=== PATIENT | female | born 1980 | race Caucasian/White ===

== ENCOUNTER 2020-08-18 22:10 | Emergency (ER) | payer OTHER, SELFPAY ==
[2020-08-18 22:12] VITALS: BP 117/73; PULSE 63; RESP 16; TEMP 35.9; O2SAT 98; BMI 29.2
--- NOTE | 2020-08-18 22:43 | ED.DCSUM_ITS ---
History of Present Illness Chief Complaint: Foreign Body Informant: Patient Narrative: Presents with possible burning stuck in her throat. She stated she was eating some soup and felt that she may have swallowed a bone. She has pain in the right side of her neck. She is able to drink fluids but it hurts. She is not regurgitating. She is unsure if it just scratched her throat or if it stuck there. She has a foreign body sensation however. She is never had this before. No chronic esophagus problems. No previous endoscopy. She takes no medications or has no chronic medical problems. Current severity is mild to moderate. No home treatment. Past Medical History - Allergies and Home Meds Allergies/Adverse Reactions: Allergies morphine Allergy (Verified 08/18/20 22:14) Swelling Primary Care Physician: Diony Mobley MD [Primary Care Provider] - Prior records reviewed: Yes Past Medical History: None Surgical History: - - Lives: With Family Smoking Status: Never smoker Alcohol: None Drugs: None Review of Systems General: Denies: Chills, Fever, Sweats Eyes: Denies: Visual changes - bilaterally, Diplopia ENT: Reports: Sore throat. Denies: Rhinorrhea Cardiovascular: Denies: Chest pain, Palpitations Respiratory: Denies: Dyspnea, Cough, Dyspnea on exertion Gastrointestinal: Denies: Abdominal pain, Nausea, Vomiting, Diarrhea, Melena, Hematochezia Genitourinary: Denies: Dysuria, Hematuria, Frequency Musculoskeletal: Denies: Back pain, Extremity Pain Skin: Denies: Rash, Wounds Neurological: Denies: Headache, Weakness, Numbness Physical Exam Vital Signs/Narrative: Vital Signs Temp Pulse Resp BP Pulse Ox 08/18/20 22:12 96.6 F L 63 16 117/73 98 General: Well nourished, Well developed, No Acute Distress Head: Normocephalic, Atraumatic Eyes: Perrl, EOMI ENT: Moist mucous membranes, No rhinorrhea Neck: Supple, Nontender Cardiovascular: Regular rate, Regular rhythm, No murmurs Respiratory: No distress, CTA bilaterally, Chest nontender Abdomen: Soft, Nontender, Nondistended, Normal bowel sounds Back: Nontender, Normal Inspection Extremities: Nontender, No edema Skin: Normal color, No rash Neurological: Alert, Oriented x3, Cranial nerves II-XII grossly intact, Normal Strength, Normal Sensation Psychological: Normal affect, Normal Mood Diagnostic/Tx/Re-eval - Medical Decision Making Patient able to swallow water but with pain. Given a GI cocktail. X-ray of the soft tissue neck obtained. X-ray negative for foreign body. Patient felt somewhat better after GI cocktail. She may just have an abrasion from a bone that went down. I do not think she needs a CT soft tissue neck. She is nontoxic. She will do a liquid diet and liquid Tylenol or ibuprofen over-the- counter and follow-up with general surgery if needed. She may need outpatient endoscopy. ED Disposition - Plan for ED Patient: Disposition: Home or Assisted Living Diagnosis: Foreign body sensation in throat Instructions: ED Swallowed Foreign Body (Adult) Referrals: Dequan Ruiz MD [STAFF PHYSICIAN] -
[2020-08-18] MEDS: Mag Hydrox/Al Hydrox/Simeth 30 ML UDC PO (22:52)
--- NOTE | 2020-08-18 22:58 | RAD_ITS ---
STUDY: X-RAY - SOFT TISSUE NECK REASON FOR EXAM: Female, 39 years old. Possible foreign body. Patient thinks chicken bone is stuck in throat. TECHNIQUE: 2 view(s) of the neck were obtained. COMPARISON: None. FINDINGS: Normal visualized nasopharynx, oropharynx, hypopharynx. Normal epiglottis. Normal visualized subglottic tracheal air column. Normal prevertebral soft tissue structures. Normal visualized osseous structures. The soft tissue structures are unremarkable. There is no visualized radiopaque foreign body. RAD/Neck for Soft Tissue IMPRESSION: Normal x-ray soft tissue neck. Electronically Signed: Sharad Gurrola DO at 23:13 EST Tel [phone], Service support ,
[2020-08-19 00:10] VITALS: RESP 16; O2SAT 100
== END 2020-08-19 00:11 | disposition home or self-care (01) ==
PROVIDERS: Emergency Provider Emergency Medicine; PCP Family Medicine
DX: T17.208A Unspecified foreign body in pharynx causing other injury, initial encounter (principal); X58.XXXA Exposure to other specified factors, initial encounter
CPT/HCPCS: 70360; 99282

== ENCOUNTER 2023-02-15 07:39 | Emergency (ER) | payer OTHER, SELFPAY ==
[2023-02-15 07:39] VITALS: BP 148/88; PULSE 65; RESP 18; TEMP 36.2; O2SAT 100; BMI 29.2
[2023-02-15 07:41] VITALS: BP 148/88; PULSE 65; RESP 18; TEMP 36.2; O2SAT 99; BMI 29.2
--- NOTE | 2023-02-15 08:03 | ED.RN ---
[facility].
[2023-02-15] MEDS: fentaNYL 100 MCG/2 ML Ampul 50 MCG IV (08:16)
[2023-02-15] MEDS: 0.9% Normal Saline 1,000 ML 100 ML IV (08:19)
--- NOTE | 2023-02-15 08:23 | EX.ED.UPPERE ---
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 Nail gun use today accidentally through left hand prior to arrival. Coated nail patient is Greek-speaking. Reports had had childhood vaccinations. Unclear on the last tetanus. No past med history. Allergy morphine causing swelling in her arm in the past. There is no anaphylaxis. No anticoagulation medications. No history of similar. Tetanus Immunization: Unknown Prior similar symptoms: No PFSH PFSH Medical History Ovarian cyst Home Medications cephalexin 500 mg capsule 500 mg PO Q6 #40 CAPSULES 02/15/23 [Rx Last Taken Unknown] Allergy/AdvReac Type Severity Reaction Status Date / Time morphine Allergy Swelling Verified 08/18/20 22:14 Family History no significant family his Surgical History H/O shoulder surgery Previous section Social History household members: family Smoking Status: Never smoker ROS ROS ED Constitutional Constitutional ED: Denies chills, fever(s) or sweats Eyes Eyes: Denies change in vision ENT ENT ED: Denies dysphagia or sore throat Cardiovascular Cardiovascular: Denies chest pain, leg edema, palpitations or racing heartbeat Respiratory/Chest Respiratory/Chest: Denies cough, dyspnea or dyspnea on exertion Gastrointestinal Gastrointestinal: Denies abdominal pain, diarrhea, nausea or vomiting Genitourinary Genitourinary ED: Denies dysuria, hematuria or urinary frequency Musculoskeletal Musculoskeletal: Denies back pain, extremity pain or neck pain Integumentary Reports wounds and other Details: Penetrating nail injury to the left hand ; Denies rash Neurologic Neurologic: Denies headache(s), paresthesias or weakness EXAM Physical Exam Const Vital Signs: 02/15/23 07:39 02/15/23 07:41 Temperature 97.2 F L 97.2 F L Temperature Source Temporal Temporal Pulse Rate 65 65 Respiratory Rate 18 18 Blood Pressure 148/88 H 148/88 H Blood Pressure Mean 108 108 Pulse Ox 100 99 Oxygen Delivery Method Room Air Room Air Positive well nourished and well developed General Appearance ED: well developed and NAD HEENT Reports moist mucous membranes normocephalic and atraumatic Eyes PERRL, EOMs intact bilaterally and conjunctivae normal General Eye ED: Yes normal appearance of both eyes Neck no lymphadenopathy and supple General: Negative for tenderness Chest Wall Chest: Negative for tenderness Resp normal respiratory effort and normal air movement Effort and Inspection: symmetric chest movement; Negative for respiratory distress Cardio regular rate, regular rhythm and no murmurs Peripheral Pulses: pulses 2+ throughout GI normal to inspection, nondistended, normoactive bowel sounds and non-tender Palpation: Negative for guarding or rebound tenderness present Back/Spine no CVA tenderness and no thoracic nor lumbar tenderness Extremity Extremity Narrative: Left upper extremity: Hand: Penetrating nail distal portion hand between the third and fourth metacarpals with point sticking out the dorsal aspect there is some surrounding erythema. Patient able to move her fingers distally. Rings to the ring finger were removed. There is no swelling distally currently. Cap refills intact distally. General Extremety ED: Negative for edema or tenderness General Extremity: Negative for edema Neuro oriented x3 and no sensory deficits noted Sensorium / Orientation: awake and alert Skin no rashes or lesions noted and no wounds MDM MDM MDM Narrative Medical decision making narrative: Interventions / MDM: Differential diagnosis: Penetrating injury left hand, tendon injury, bone fractures, cellulitis Diagnosis considered but do not suspect: N/A My EKG interpretation: N/A Imaging independently reviewed and interpreted by myself: Left hand 3 views: Metallic nail through the hand between the third and fourth metacarpals. No bony involvement. There is anchors noted on the side. External documents reviewed: N/A Test considered but not ordered:N/A ED course: Patient penetrating injury there is slight erythema dorsal aspect of the hand currently with a coated nail. IV established labs Ancef given, tetanus updated. X-ray ordered. Fentanyl and fluids started. Procedure note: Verbal consent. After reviewing x-ray with anchors, discussed cutting the head and going through and through with the direction of the nail entrance. They understand this. Betadine prep of the skin dorsal and volar are prior to starting. Patient had 1% lidocaine injection a total of 8 cc dorsal and volar aspect for analgesia control. 11 blade used for skin slit incision dorsal aspect proximal and distal in a vertical position. Betadine prep of the instruments used. Head of nail was cut with pliers on the palmar aspect. Additional prior used to pull the nail from the dorsal aspect out with no complications. Mixed saline and Betadine solution used to flush the wound on both sides. Flexion against resistance of all digits were intact distally without any weakness. Patient tolerated procedure well. 0910: No bony involvement nail was removed as noted above. There is slight erythema she is at risk for infection with concerning coating to the nail. There is no hand specialist available locally. [facility] telehealth hand will be consulted for evaluation for likely close outpatient follow-up. Image studies were sent to the facility. 0950: I spoke with [facility] hand Dr. Brown discussed findings concerns. He will follow-up in 1 week at the office. He is aware that orthopedist Dr. Wang does see him also in the past. He is not on-call discussed. I will give information for the office they would not see her for hand injury that they will call and be seen in [place]. This was discussed with her superiors from her job. She is currently having vacation time, therefore will be not work that remains restrictions currently. Re-evaluation: stable Disposition discussed with patient/family/significant other: Patient and family Case discussed with consulting clinician: Hand specialist [facility], Dr. Brown This note was generated with Wis[employer] dictation software. It may contain incorrect words, spelling, and punctuation that were not noted in checking the note before signing. Discharge Plan Triage Chief Complaint: Upper Extremity Injury Other Complaint: Wound ED Provider: Jagdeep Luis Dx/Rx/DC Orders Clinical Impression: Penetrating injury, Cellulitis of hand, left, Puncture wound of left hand Instructions: Cellulitis Dc, ED Puncture Wound (General) Prescriptions: New cephalexin [cephalexin] 500 mg capsule 500 mg PO Q6 Qty: 40 0RF Primary Care Provider: Diony Mobley Referrals: Diony Mobley MD [Primary Care Provider] - Andrew Wang DO [Med Staff - Active Staff] - 1 Week Activity Restrictions/Additional Instructions: Nail was removed from hand. Status post Ancef and tetanus. Take antibiotic as prescribed. Ibuprofen up to 600 mg every 6 hours. You may try calling Dr. Wang's office if they are willing to see a hand injury in [address] Brown office at [phone] to be seen down in [place] [facility] for evaluation. Discussed signs of infection to return to the ED. Disposition Disposition: Home, Self Care
--- NOTE | 2023-02-15 08:30 | RAD_ITS ---
STUDY: X-RAY - LEFT HAND REASON FOR EXAM: Female, 42 years old. Foreign body due to injury. TECHNIQUE: 3 view(s) of the hand. COMPARISON: None. FINDINGS: Normal radiocarpal articulation. Normal distal radioulnar joint. Normal visualized carpal bones. Normal carpal articulations Normal carpometacarpal articulation of the thumb. Normal second through fifth carpometacarpal joints. Normal metacarpi. Normal metacarpophalangeal joint of the thumb. Normal interphalangeal joint of the thumb. Normal proximal and distal phalanges of the thumb. Normal metacarpophalangeal joints of the second through fifth fingers. Normal proximal and distal interphalangeal joints of the second through fifth fingers. Normal phalanges of the second through fifth fingers. There is a 3.7 cm metallic nail in the soft tissues overlying the dorsal aspect of the hand between the third and fourth metacarpals. RAD/Hand Min 3 Views IMPRESSION: Metallic nail in the soft tissues overlying the dorsal aspect of the hand between the third and fourth metacarpals. Electronically Signed: Buddy Johns MD at 8:51 EDT ,
[2023-02-15 08:33] LABS: Absolute Lymphocyte Count 2.12 X10^3/uL (0.83-4.51); Absolute Neutrophil Count 3.7 X10^3/uL (2.0-7.7); Basophil# 0.05 X10^3/uL; Basophil% 0.8 % (0-1); Eosinophil# 0.05 X10^3/uL; Eosinophils% 0.8 % (0-5); Hematocrit 37.4 % (37-47); Hemoglobin 12.5 g/dL (12.0-15.0); Lymphocyte # 2.12 X10^3/ul (0.83-4.51); Lymphocyte % 33.7 % (19-41); Mean Corp Hgb Conc 33.4 g/dL (32-36); Mean Corpuscular Hgb 29.3 pg (27.0-32.0); Mean Corpuscular Volume 87.8 fL (81-99); Monocyte# 0.33 X10^3/uL; Monocyte% 5.2 % (0-10); NRBC Flagged by Analyzer 0 % (0-5); Neutrophil # 3.73 X10^3/uL (2.7-7.7); Neutrophil % 59.3 % (47-70); Platelet Count 210 K/mm3 (150-450); RBC Distribution Width SD 41.4 fl (35.1-43.9); Red Blood Count 4.26 M/mm3 (4.2-5.4); White Blood Count 6.3 K/mm3 (4.4-11.0)
[2023-02-15 08:46] LABS: Anion Gap 6 (5-15); BUN 19 mg/dL (7-18); Calcium,Total 9.1 mg/dL (8.5-10.1); Chloride 107 mmol/L (98-107); Creatinine, Serum 0.68 mg/dL (0.55-1.02); EST Glomerular Filtration Rate 100 mL/min (>60); Est Glom Filt Rate - Afr Amer 121 mL/min (>60); Glucose 96 mg/dL (74-106); Potassium 3.5 mmol/L (3.5-5.1); Sodium Level 139 mmol/L (136-145)
[2023-02-15] MEDS: Diphth,Pertuss(Acell),Tet Vac 0.5 ML Vial IM (08:48)
[2023-02-15] MEDS: Cefazolin 2 GM in 0.9% Normal Saline 100 ML IV (08:48)
[2023-02-15 10:00] VITALS: RESP 16
--- NOTE | 2023-02-15 10:21 | EX.ED.UPPERE ---
HPI History of Present Illness Chief Complaint: Upper Extremity Injury [facility] Medical History Ovarian cyst Home Medications cephalexin 500 mg capsule 500 mg PO Q6 #40 CAPSULES 02/15/23 [Rx Last Taken Unknown] Allergy/AdvReac Type Severity Reaction Status Date / Time morphine Allergy Swelling Verified 08/18/20 22:14 Family History no significant family his Surgical History H/O shoulder surgery Previous section Social History household members: family Smoking Status: Never smoker EXAM Physical Exam Const Vital Signs: 02/15/23 07:39 02/15/23 07:41 02/15/23 10:00 Temperature 97.2 F L 97.2 F L Temperature Source Temporal Temporal Pulse Rate 65 65 Respiratory Rate 18 18 16 Blood Pressure 148/88 H 148/88 H Blood Pressure Mean 108 108 Pulse Ox 100 99 Oxygen Delivery Method Room Air Room Air [facility] Lab Data Labs: Laboratory Results - last 24 hr 02/15/23 08:18 WBC 6.3 RBC 4.26 Hgb 12.5 Hct 37.4 MCV 87.8 MCH 29.3 MCHC 33.4 RDW Std Deviation 41.4 RDW Coeff of Lazaro 13.0 Plt Count 210 MPV 11.0 Immature Gran % (Auto) 0.200 Neut % (Auto) 59.3 Lymph % (Auto) 33.7 [place] % (Auto) 5.2 Eos % (Auto) 0.8 Baso % (Auto) 0.8 Absolute Neuts (auto) 3.7 Absolute Lymphs (auto) 2.12 Nucleated RBC % 0 Sodium 139 Potassium 3.5 Chloride 107 Carbon Dioxide 26.0 Anion Gap 6 BUN 19 H Creatinine 0.68 Estim Creat Clear Calc 83.50 Est GFR (MDRD) Af Amer 121 Est GFR (MDRD) Non-Af 100 BUN/Creatinine Ratio 28.0 H Glucose 96 Calcium 9.1 Radiography Diagnostic Testing: Clinical Impression(s) from Imaging Studies Hand X-Ray 02/15/23 08:30 IMPRESSION: Metallic nail in the soft tissues overlying the dorsal aspect of the hand between the third and fourth metacarpals. Electronically Signed: Buddy Johns MD at 8:51 EDT , Discharge Plan Triage Chief Complaint: Upper Extremity Injury Other Complaint: Wound ED Provider: Jagdeep Luis Dx/Rx/DC Orders Clinical Impression: Penetrating injury, Cellulitis of hand, left, Puncture wound of left hand Instructions: Cellulitis Dc, ED Puncture Wound (General) Prescriptions: New cephalexin [cephalexin] 500 mg capsule 500 mg PO Q6 Qty: 40 0RF Primary Care Provider: Diony Mobley Referrals: Diony Mobley MD [Primary Care Provider] - Andrew Wang DO [Med Staff - Active Staff] - 1 Week Activity Restrictions/Additional Instructions: Nail was removed from hand. Status post Ancef and tetanus. Take antibiotic as prescribed. Ibuprofen up to 600 mg every 6 hours. You may try calling Dr. Wang's office if they are willing to see a hand injury in [address] Brown office at [phone] to be seen down in [place] [facility] for evaluation. Discussed signs of infection to return to the ED. Disposition Disposition: Home, Self Care
== END 2023-02-15 10:20 | disposition home or self-care (01) ==
PROVIDERS: Emergency Provider Emergency Medicine; PCP Family Medicine; Visit Provider Emergency Medicine
DX: S61.432A Puncture wound without foreign body of left hand, initial encounter (principal); L03.114 Cellulitis of left upper limb; X58.XXXA Exposure to other specified factors, initial encounter
CPT/HCPCS: 73130; 80048; 85025; 90715; 96365; 96366; 96375; 99283; J7030; A4216